=== PATIENT | female | born 1950 | race Caucasian/White ===

== ENCOUNTER 2017-01-05 17:24 | Inpatient (IN) | payer MEDICARE, OTHER ==
--- NOTE | ~2017-01-05 | CN ---
Consultation Report [facility] [address] [place]. [address] NAME: ALICE TORRES : 49 STATUS : ADM IN PAT#: [id number] AGE: 66 ADM/REG DATE : 01/05/17 MR#: [id number] REPORT SERV DATE: 01/06/17 DICTATED BY: DATE: REPORT STATUS : Draft TRANSCRIBED BY: MODL DATE: 01/06/17 DATE OF CONSULTATION: 01/06/2017 REASON FOR CONSULT: Anoxic brain injury, myoclonus. HISTORY OF PRESENT ILLNESS: This is a 66-year-old female who once at a pharmacy on 01/05/2017 was noted to pass out. Was also found to be in asystole. CPR was started with total CPR time of at least 30 minutes. The patient was taken initially to [facility] and subsequently to [facility] for further evaluation and treatment. The patient upon arrival to the ER was taken to the cardiac catheterization, was intubated, and sedated. Afterwards, the patient was noted to start hypothermia protocol. No previous reports of recent illness were otherwise noted. Patient after cardiac arrest was noted to develop myoclonus jerk. Keppra 1500 mg b.i.d. was started despite Keppra therapy. Patient was noted to have a persist myoclonic jerk, with the patient noted to have worsening jerking when propofol was decreased. PAST MEDICAL HISTORY: Significant for coronary artery disease, status post coronary artery bypass surgery. Patient was noted to have chronic left bundle branch block as well as a history of previous noted decreased EF of 37%. The patient also was noted to have hyperlipidemia as well as obesity and history of COPD. REVIEW OF SYSTEMS: Unable to be obtained secondary to patient's current mental status. FAMILY HISTORY: Unobtainable secondary to patient's mental status. SOCIAL HISTORY: Patient currently does not have any tobacco, alcohol, or recreational drug usage. ALLERGIES: THE PATIENT WAS NOTED TO HAVE NO KNOWN DRUG ALLERGIES. CURRENT HOSPITAL MEDICATIONS: Consist of aspirin, Brilinta, DuoNeb, Proventil, Keppra. The patient was started on Depakote but have now received a dosage of it, Protonix, as well as propofol, and fentanyl. The patient is also on Levophed. PHYSICAL EXAMINATION: VITAL SIGNS: Overnight, patient was noted to have vital signs with T-max of 91.7, heart rate of 50 to 84, respirations of 14 to 37, and blood pressure of 99 to 196 over 55 to 84. GENERAL: The patient is well developed, well nourished, in no acute distress. CARDIOVASCULAR EXAMINATION: Regular rate and rhythm. Carotid bruits were unable to be assessed secondary to patient's Central collar. PULMONARY EXAMINATION: Clear to auscultation bilaterally. NEUROLOGICAL EXAMINATION: Pupil was 2 mm bilaterally. Nonreactive at the time of evaluation. No blink to threat response. No corneal reflex was otherwise observed. No horizontal eye movement was seen on oculocephalic maneuver. The patient demonstrated no gag Consultation Report [place] [id number] [facility] [place]. [address] NAME: ALICE TORRES : 49 STATUS : ADM IN PAT#: [id number] AGE: 66 ADM/REG DATE : 01/05/17 MR#: [id number] REPORT SERV DATE: 01/06/17 DICTATED BY: DATE: REPORT STATUS : Draft TRANSCRIBED BY: MODL DATE: 01/06/17 reflex, and no grimace to noxious stimulation. Persistent multifocal myoclonus was noted during the evaluation, that was worse with stimulation. Patient otherwise demonstrated no grimace withdrawal or posturing to noxious stimulation in bilateral upper and lower extremities. The patient noted to have worsening myoclonus to noxious stimulation. The patient was noted to have 2+ reflex in bilateral upper extremity, 1+ in bilateral lower extremities at the time of evaluation. Gait and cerebellar examination was unable to be evaluated secondary to patient's current mental status. LABORATORY DATA: At the time of evaluation, patient was noted to have laboratory study. White blood cell count of 14.63, hemoglobin of 12.2, hematocrit of 36.0, platelet count of 307. Sodium of 142, potassium of 2.7, chloride of 102, bicarb 31, BUN of 20, creatinine of 0.71, glucose of 118, calcium of 9.2, magnesium of 2.4. At the time of evaluation, no neuro imaging was obtained. IMPRESSION: 1. Anoxic encephalopathy. 2. Mild clonus status post asystole CPR. Patient was noted to have myoclonus overnight. Hypothermia protocol is currently ongoing. Patient was started on Keppra 1500 mg IV b.i.d. We will start the patient on Depakote 1000 mg IV b.i.d. Myoclonus was noted to increasing frequency and severely when propofol dosage was decreased. Prognosis is guarded secondary to presence of early mild clonus. We will obtain EEG on 01/07/2017. May consider neuroimaging of patient once clinically stable. RECOMMENDATIONS: 1. Depakote 1000 mg IV b.i.d. 2. Continue Keppra. 3. We will obtain EEG on 01/07/2017. 4. Wean propofol as tolerated. 5. When patient is clinically stable, may consider neuro imaging. 6. Prognosis guarded. CCH/MODL Sy Bello MD / [id number]
--- NOTE | ~2017-01-05 | CN ---
Consultation Report [facility] [address] [place]. [address] NAME: ALICE MAY : 49 STATUS : ADM IN PAT#: [id number] AGE: 66 ADM/REG DATE : 01/05/17 MR#: [id number] REPORT SERV DATE: 01/05/17 DICTATED BY: YVONNE SEGOVIA DATE: 01/05/17 REPORT STATUS : Draft TRANSCRIBED BY: MODL DATE: 01/05/17 PULMONARY AND CRITICAL CARE MEDICINE CONSULTATION DATE OF CONSULTATION: 01/05/2017 PCP: Her primary care physician according to the previous records is Dr. Lilia Simeon. WILL CALL CLERK: Her project manager industrial is Dr. Anshu Mike. REASON FOR CONSULTATION: Acute hypoxemic respiratory failure, status post asystole arrest with prolonged down time. HISTORY OF PRESENT ILLNESS: Ms. May is a morbidly obese 66-year-old lady who has known coronary artery disease with a remote history of a stent to the LAD which was followed up with a left heart catheterization in 2013, performed by Dr. Brito which showed no flow limiting disease and a widely patent stent in the LAD. She has additional underlying medical history of COPD, severe obesity, osteoarthritis. Ms May at the [facility] in [place], [place] this afternoon, and according to her family (by reports of the paramedics who had transferred her), she was developing dyspnea with walking around the store and ultimately family went out to get the car to pick her up on the curb, and shortly before she was able to get into the car, she became unconscious and collapsed to the ground and face planted onto the asphalt. EMS was contacted emergently and the pharmacist from the [facility] ran out to the parking lot and assessed her and began CPR, this was less than four to five minutes from the time she collapsed. EMS arrived quickly, and when she was placed on the monitor, she was in asystole. ACLS was initiated and she was emergently transported to [facility] in [place] where she was found to be in persistent asystole. Ultimately, the team at [facility] was able to obtain return of spontaneous circulation, however, she was down for approximately 30 minutes from her initial collapse of the time that return of spontaneous circulation was achieved. Initial lab workup at [facility] showed potassium level of around 6 and marked metabolic and respiratory acidosis. She was stabilized and intubated with a size 7-0 tube (either by EMS or at [facility]) and was transferred by ground urgently to undergo a left heart catheterization at our facility with Dr. Brito. Her left heart cath showed a 90% mid LAD lesion which Dr. Brito was able to place a drug-eluting stent in. Brief LV gram showed global hypokinesis with an LV ejection fraction of around 20% and LV end-diastolic pressure around 30. Of note, she did receive Lasix after measurements were completed. She has not required vasopressors thus far and was started on hypothermia protocol at [facility] and which is being continued here. Her last ABG showed a pH of 7.43, a CO2 level of 44, and PO2 of greater than 300. She has not had any purposeful motor function or regaining of consciousness since her initial collapse, although the ER doctor at [facility] did note that she was moving her arms and legs non- purposefully after return of spontaneous circulation was achieved in the emergency department there. She has now been moved to the intensive care unit on mechanical ventilation following her left heart catheterization for ongoing hypothermia protocol and we are asked to assist with management. Consultation Report [address] [address] NAME: ALICE MAY : 49 STATUS : ADM IN LOCATED WITHIN [facility]#: [id number] AGE: 66 ADM/REG DATE : 01/05/17 MR#: [id number] REPORT SERV DATE: 01/05/17 DICTATED BY: YVONNE SEGOVIA DATE: 01/05/17 REPORT STATUS : Draft TRANSCRIBED BY: GIORGIO DATE: 01/05/17 PAST MEDICAL HISTORY: As the patient is not conscious and no family has arrived to the hospital yet, information is limited; coronary artery disease, status post remote stent to the LAD with followup left heart cath in 2013 as above; COPD, severe obesity with a weight of approximately 158 kg, osteoarthritis, suspected history of tobacco abuse, depression, dyslipidemia, a history of tobacco abuse, and hypothyroidism. SURGICAL HISTORY: Largely unknown. She does have laparoscopic incisions on her abdomen which we will need to further investigate. She did have the two left heart caths as noted above. Bladder tack in 2002 in addition to the heart cath. Additional past surgical history includes a repair of the Achilles tendon by Dr. Dallas Rizo in May of 2009 and an EGD performed by Dr. Shorty Calderon in 11/04/2008. She has also had two C-sections, dates unknown. SOCIAL HISTORY: Unknown. Her family is still en route to the hospital. FAMILY HISTORY: Unknown. HOME MEDICATIONS: Taken from the heart catheterization performed in 2013 include Advair, Norvasc, Coreg, Lasix, nitroglycerin, aspirin, isosorbide mononitrate, Prilosec, BuSpar, Synthroid, Effexor and ProAir. ALLERGIES: NONE KNOWN. REVIEW OF SYSTEMS: Unable to perform due to acuity and lack of family availability. ADVANCED DIRECTIVES AND LIVING LOMBARDO: Unknown. PHYSICAL EXAMINATION: GENERAL: The patient is a morbidly obese, female, with a very thick neck. She has a 7.0 ET tube projecting from the mouth and has intermittent myoclonic jerking which is fairly dramatic. HEENT: Head is atraumatic. Pupils are fixed and not reactive to light. Unable to perform extraocular movement testing. She has a mild conjunctival pallor and no appreciable scleral icterus. Ears, nose, and mouth are unremarkable aside from the medical support devices as noted above. She has moist oral mucosa. NECK: With a copious redundant soft tissue, limiting ability to assess for JVD. CHEST: With distant breath sounds bilaterally secondary to body habitus, S1-S2 with a brisk cap refill distal extremities. ABDOMEN: Morbidly obese with healing laparoscopic surgical scars on the abdomen. She has healed scars from previous C-sections on the lower abdomen and a fungal appearing rash in the creases of her pannus with some erythema of the skin there as well as on her sacrum which also appears to have the same rash. : A Hickman catheter is indwelling and draining minimal amount of translucent urine. Consultation Report [place] [id number] [facility] [place]. [address] NAME: ALICE MAY : 49 STATUS : ADM IN PAT#: [id number] AGE: 66 ADM/REG DATE : 01/05/17 MR#: [id number] REPORT SERV DATE: 01/05/17 DICTATED BY: YVONNE SEGOVIA DATE: 01/05/17 REPORT STATUS : Draft TRANSCRIBED BY: MODL DATE: 01/05/17 EXTREMITIES: With no spontaneous movements. She has pitting edema bilaterally. LYMPHATIC: Unremarkable. No palpable adenopathy. SKIN: She has multiple abrasions overlying the level of the knee, the elbow with a bandage with some active bleeding on the right elbow. NEUROLOGIC: Very limited. She is not conscious. She is having myoclonic jerking and no spontaneous responses to pain. PSYCHIATRIC: Unable to perform. PERSONAL REVIEW OF DIAGNOSTIC WORKUP PERFORMED AT THE PRE K [facility]ER: She has leukocytosis with neutrophilia, presumably reactive secondary to her events today. White blood cell count of 16.9, hemoglobin and hematocrit are mildly depressed at 12.5 and 39.6. She has macrocytosis and an adequate platelet count in the 300s. PTT of 103.5 in the setting of recent heparin use and her INR is 1.3. The chest pain profile is largely unremarkable. Her troponin level is negative of 0.03. A magnesium was 2.4. Other electrolytes were unremarkable. She has a creatinine of 1.08 and a BUN of 18, presumably in the setting of some degree of chronic kidney disease. She has mild hyperglycemia with a glucose of 157 after administration of several medications involving dextrose. Her pH is 7.43, PaCO2 of 44, PaO2 greater than 400, base excess of 5, bicarb is 29.6, and oxygen saturation 100% on 100% FiO2. A chest x-ray is pending. Her EKG from [facility] today shows normal sinus rhythm with a ventricular rate of 95 beats per minute. Prolonged QT at [address] changes which may or may not be chronic. She does have a left bundle branch block of unknown chronicity as well. IMPRESSION: 1. Acute hypoxemic respiratory failure, status post asystole arrest in the field with prolonged down time. 2. Asystole arrest with approximately 30 minutes of advanced cardiovascular life support prior to return of spontaneous circulation. 3. Known coronary artery disease, status post prior stenting to the left anterior descending remotely as well as follow up left heart cath in 2013 which showed no evidence of flow-limiting disease. Today's left heart cath showed 90% mid left anterior descending lesion which was treated with a drug-eluting stent by Dr. Brito. 4. Ischemic cardiomyopathy with a left ventricular ejection fraction approximately 20% and a left ventricular end-diastolic pressure of around 30, status post diuretics in the bed laborer. 5. Metabolic acidosis as well as respiratory acidosis secondary to the above. 6. Obstructive lung disease, presumably chronic obstructive pulmonary disease versus asthma on outpatient therapy. 7. Morbid obesity with a body mass index of greater than 40. 8. Additional past medical history as above. 9. Myoclonic jerking in the setting of prolonged down time during cardiac arrest suspicious for anoxia. 10.Remote tobacco abuse. Consultation Report [place] [id number] [place]. [address] NAME: ALICE MAY : 49 STATUS : ADM IN PAT#: [id number] AGE: 66 ADM/REG DATE : 01/05/17 MR#: [id number] REPORT SERV DATE: 01/05/17 DICTATED BY: YVONNE SEGOVIA DATE: 01/05/17 REPORT STATUS : Draft TRANSCRIBED BY: GIORGIO DATE: 01/05/17 PLAN: Ms. May has already been admitted to the CCU. She is intubated with a 7.0 ET tube from the outside hospital and has been started on hypothermia protocol. The [facility] is already at target temperature as she was quite hypothermic upon her arrival. We will continue to support her through the hypothermia window, and we will likely need to involve Neurology upon rewarming for prognostication of her presumed anoxia, particularly in light of her myoclonic jerking which was noted prior to administration of sedatives or paralytics while she was being transferred to the CCU from the bed laborer. We will hyperventilate to correct acidosis and monitor her renal function closely. Continue diuretics on an as-needed basis to maintain euvolemia and obtain central venous access should she decompensate and require vasopressors. Her family has not yet arrived, however, upon there arrival, we need to obtain additional past medical history and also obtain past records from Dr. Mike and Dr. Lilia Simeon. She was on a heparin drip earlier today. Pending Cardiology plan, we will add pharmacologic DVT prophylaxis and start her on a proton pump inhibitor for stress ulcer prophylaxis. We will hold the remainder of her home medications. She will need a tetanus shot as we do not know when her last one was, and she does have some injuries to her skin due to her fall. Should she improve neurologically, we may also need to consider C- spine imaging in the future, however, she is far too unstable to transfer the scan at the moment and we will try to find a C-collar which would fit on her fairly large neck. She is a full code pending further prognostication. I did discuss case with Dr. Brito and reviewed her records and [facility] as well as [facility]. Approximately, 70 minutes of critical care time was spent at the bedside uninterrupted, assessing, stabilizing, and coordinating care. Please see separate central line insertion note. KAREY/GIORGIO Yvonne Segovia MD / [id number] CC: Jovita Brito M.D.
--- NOTE | ~2017-01-05 | HP ---
History And Physical [facility] [address] [place]. [address] NAME: ALICE TORRES : 49 STATUS : ADM IN PAT#: [id number] AGE: 66 ADM/REG DATE : 01/05/17 MR#: [id number] REPORT SERV DATE: 01/05/17 DICTATED BY: ISAAC BRITO DATE: 01/05/17 REPORT STATUS : Draft TRANSCRIBED BY: MODL DATE: 01/05/17 DATE OF ADMISSION: 01/05/2017 CHIEF COMPLAINT: Status post syncope and asystolic arrest. HISTORY OF PRESENT ILLNESS: The patient is a 66-year-old female with known coronary artery disease with remote stenting to the left anterior descending coronary artery. Patient history is taken from family members at the scene as well as medical records. The patient is intubated, mechanically ventilated and chemically sedated, and unable to contribute to interview. Per patient report, the patient was having respiratory difficulties and fatigue while in the [facility]. They cut her visit short as the family member was bringing the car to the door. The patient's [id number] helped her step-down for the curb, as the car pulled up and the [id number] stepped over to open the door, the patient collapsed forward and on to her face and chest. She was completely unresponsive. Bystander CPR by a family member and the pharmacist of the [facility] was initiated within a matter of several minutes. Emergency medical services arrived reportedly within 5 to 10 minutes. Telemetry monitoring demonstrated asystole. Advanced cardiac life support measures were initiated including intubation and ventilation. The patient had return of spontaneous rhythm with a perfusing blood pressure. The patient was transferred to [facility] in [place], [place] for further evaluation. She reportedly had some spontaneous movement of the upper and lower extremities. No specific purposeful motor movement was described. An electrocardiogram was performed, which demonstrated sinus rhythm with a left bundle-branch block. It was of unknown chronicity and due to arrest in the presence of left bundle-branch block. The Code STEMI protocol was activated, and the patient was transferred emergently to [facility]. The patient was received emergently in the cardiac catheterization laboratory. On arrival in the catheterization laboratory, the patient was chemically sedated, mechanically intubated and mechanically ventilated prior to arrival. The patient had a spontaneous rhythm with sinus rhythm in the 90s with a perfusing pressure in the 130 systolic. PAST MEDICAL HISTORY: 1. Coronary artery disease status post remote coronary artery bypass grafting with most recent cardiac catheterization 09/01/2013, demonstrating a patent stent to the LAD and no flow-limiting CAD at that time. 2. Chronic left bundle-branch block by review of old medical records. 3. Reported remote history of depressed ejection fraction of 37% by nuclear perfusion stress test in 2013. 4. Morbid obesity. 5. Hyperlipidemia. 6. History of asthma/chronic obstructive pulmonary disease. REVIEW OF SYSTEMS: History And Physical [address] [address] NAME: ALICE TORRES : 49 STATUS : ADM IN [facility]#: [id number] AGE: 66 ADM/REG DATE : 01/05/17 MR#: [id number] REPORT SERV DATE: 01/05/17 DICTATED BY: ISAAC BRITO DATE: 01/05/17 REPORT STATUS : Draft TRANSCRIBED BY: GIORGIO DATE: 01/05/17 Unobtainable. FAMILY HISTORY: Not obtainable. SOCIAL HISTORY: Reported nondrinker, nonsmoker with no illicit drug use per family. PHYSICAL EXAMINATION: VITALS: Blood pressure 118/64, pulse 94, respirations 20 and mechanically ventilated. Weight 158 kg. GENERAL: Morbidly obese female chemically sedated, intubated with mechanical ventilation. HEENT: Normal. NECK: Supple, no JVD or bruit, normal carotid upstroke bilaterally, no thyromegaly. LUNGS: Diffuse rhonchi. CARDIOLOGY: Regular rhythm, normal S1, S2, no thrill, no murmur, rubs or gallops, normal PMI. ABDOMEN: Bowel sounds positive, soft, nontender, and morbidly obese. Previous lower mid line to pelvic diagonal scar noted. EXTREMITIES: No edema. Normal pulses. No clubbing or cyanosis. SKIN: Warm and dry, no significant rash. NEUROLOGIC: Alert and oriented x 3. Appropriate mood. EKG: Sinus rhythm. Left bundle-branch block. IMPRESSION: Status post cardiac arrest with left bundle-branch block which initially was felt to be of an acute finding. The patient received emergently in cardiac catheterization laboratory. Please see details of catheterization report under separate report. In summary, the patient found have a 90% mid vessel LAD stenosis with stenting using a drug-eluting stent. Hand injection left ventriculogram demonstrating severely depressed left ventricular systolic function with an ejection fraction of approximately 20%. The patient is transferred to the cardiac intensive care unit in stable, but critical condition with plans for hypothermia protocol. TRAVIS/GIORGIO Jovita Brito M.D. / [id number] CC: Jovita Brito M.D.
--- NOTE | ~2017-01-05 | EEG ---
Electroencephalogram [address] [place]. [address] NAME: ALICE TORRES : 48 STATUS : ADM IN [facility]#: [id number] AGE: 66 ADM/REG DATE : 01/05/17 MR#: [id number] REPORT SERV DATE: 01/08/17 DICTATED BY: LATRICE ERIC DATE: 01/08/17 REPORT STATUS : Draft TRANSCRIBED BY: MODL DATE: 01/08/17 ORDERING PHYSICIAN: Sy Bello MD INTERPRETING PHYSICIAN: Latrice Eric MD, Neurology EEG NUMBER: [id number] REASON FOR EEG: Myoclonic jerking status post cardiopulmonary arrest, status post hypothermia protocol. LOCATION OF THE PATIENT: CCU, bed 13. ELECTROENCEPHALOGRAPHY REPORT: 23 surface electrodes, 10-20 international placement was used. Photic stimulation was performed. Video monitoring was utilized. The patient was unresponsive on ventilatory support. Continuous rhythmic eye movement with rhythmic twitching of the upper eyelids was observed during the EEG. Multiple medications were administered during the EEG to treat continuous status epilepticus. The salient feature of this EEG was presence of generalized high to middle voltage spikes and poly spike activity which was seen in all the leads with the amplitude being the greatest in the anterior head regions. The configuration of the waveforms appeared to resemble biphasic and triphasic waveforms. Additional spikes and poly spikes were observed. The frequency of above described paroxysmal epileptiform discharges was between 2 and 4 cycles per second. No discernible background activity was seen of the interictal EEG. This activity continued despite the administration of medications which included 1500 mg of Depakote, 1.5 g of Cerebyx, repeated doses of Ativan, 1500 mg of Keppra, and eventually towards the end of the recording Versed was administered. This was a prolonged EEG of 4 hours and 50 minutes duration. No significant changes in the paroxysmal activity was seen despite the administration of medication. IMPRESSION: MARKEDLY ABNORMAL EEG CHARACTERIZED BY PRESENCE OF CONTINUOUS STATUS EPILEPTICUS. THE RHYTHMIC JERKING OF THE EYES AND EYELIDS CORRESPONDED TO THE RHYTHMIC EPILEPTIFORM DISCHARGES. DURING THE TIME THE PATIENT WAS UNRESPONSIVE, NO OTHER MUSCLE GROUPS SHOWED EVIDENCE OF TONIC OR CLONIC ACTIVITY. THIS EEG IS SUGGESTIVE OF PRESENCE OF ANOXIC ENCEPHALOPATHY WITH PROLONGED STATUS EPILEPTICUS. CLINICAL CORRELATION IS RECOMMENDED. A REPEAT EEG IS RECOMMENDED IF CLINICALLY INDICATED. KAREN/GIORGIO Latrice Eric MD / [id number] CC: Electroencephalogram [address] [facility] [place] [address] NAME: ALICE TORRES : 48 STATUS : ADM IN [facility]#: [id number] AGE: 66 ADM/REG DATE : 01/05/17 MR#: [id number] REPORT SERV DATE: 01/08/17 DICTATED BY: LATRICE ERIC DATE: 01/08/17 REPORT STATUS : Draft TRANSCRIBED BY: MODL DATE: 01/08/17 Jovita Brito M.D.
--- NOTE | ~2017-01-05 | HP ---
History And Physical [facility] [address] [place]. [address] NAME: ALICE TORRES : 48 STATUS : ADM IN [facility]#: [id number] AGE: 66 ADM/REG DATE : 01/05/17 MR#: [id number] REPORT SERV DATE: 01/09/17 DICTATED BY: MARSHAL JAUREGUI DATE: 01/08/17 REPORT STATUS : Draft TRANSCRIBED BY: MODTrevor DATE: 01/08/17 DATE OF ADMISSION: 01/05/2017 The patient is a 66-year-old, morbidly obese woman, who had an tvl-go-qfvlyokv arrest reportedly at a pharmacy on Father's Day. She was coded, sent initially to [facility] and then to [facility]. She had apparently a profound anoxic brain injury and seizures and is on a vent. They tried hypothermia, but she continues to have some seizures and is otherwise obtunded. Most of this history was obtained either from the chart or interviewing her of 45 years, Shahla and her two children, Karmen and Warren. PAST MEDICAL HISTORY: Pertinent for coronary artery disease with a stent, congestive heart failure. She had had an EF of 37% and after this most recent MO, it is down to 20%. She has morbid obesity with a reported weight of 373 pounds and a BMI of 64.1. She also has hyperlipidemia, asthma, COPD. She was started on oxygen in October. Sleep apnea, chronic left bundle-branch block, history of a stroke. PAST SURGICAL HISTORY: Includes several cardiac caths, one stent in her heart, bladder tack, two C-sections, Achilles tendon repair, and hysterectomy in October. SOCIAL HISTORY: She has been 45 years, two children. She quit smoking five years ago. No alcohol. No illicits. She was on disability prior to that. 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 FAMILY HISTORY: Pertinent for heart disease, heart failure, stroke and cancer. ALLERGIES: SHE HAS NO ALLERGIES. CT SCAN TODAY SHOWS THE OLD LEFT CVA, NO OTHER CHANGES. EEG WAS CONSISTENT WITH SEIZURES. PHYSICAL EXAMINATION: GENERAL: This is a morbidly obese, obtunded white female, who was not seizing at this exact moment, but was earlier this afternoon. VITAL SIGNS: Blood pressure 131/55, 81, 25, 98.2. EYES: Pupils are small and equal. NECK: She has a brace on her neck. HEART: Sounds are very distant but regular. LUNGS: Rhonchi without rales or wheezes. ABDOMEN: Very large, there are several bits of equipment on her abdomen. I feel no masses. EXTREMITIES: She has 2+ edema. NEURO: She is unable to cooperate with a neurologic exam. PLAN: Family is waiting to hear from the neurologist with an eye toward extubating the patient, controlling the seizures and allowing the patient comfort care until she passes. She is being GIP for her seizures and dyspnea. History And Physical [address] [address] NAME: ALICE TORRES : 48 STATUS : ADM IN [facility]#: [id number] AGE: 66 ADM/REG DATE : 01/05/17 MR#: [id number] REPORT SERV DATE: 01/09/17 DICTATED BY: MARSHAL JAUREGUI DATE: 01/08/17 REPORT STATUS : Draft TRANSCRIBED BY: GIORGIO DATE: 01/08/17 GP/GIORGIO Marshal Jauregui MD / [id number] CC: Jovita Brito M.D.
--- NOTE | ~2017-01-05 | EEG ---
Electroencephalogram [address] [place]. [address] NAME: ALICE TORRES : 48 STATUS : DIS IN PAT#: [id number] AGE: 66 ADM/REG DATE : 01/05/17 MR#: [id number] REPORT SERV DATE: 01/15/17 DICTATED BY: LATRICE ERIC DATE: 01/14/17 REPORT STATUS : Draft TRANSCRIBED BY: MODL DATE: 01/14/17 REQUESTING PHYSICIAN: The packer denture team and referring, Jovita Brito M.D. INTERPRETING PHYSICIAN: Latrice Eric MD, Neurology. REASON FOR EEG: Status post cardiopulmonary arrest. Continuous seizure activity. ELECTROENCEPHALOGRAPHY REPORT: . Video monitoring was utilized. Photic stimulation was not performed. This EEG showed continuous status epilepticus with spikes and poly-spike activity occurring in periodic and rhythmic configuration. Richard and polyspike activity of frequency between 1 and 5-6 cycles per second was seen. The epileptiform discharges were of high-voltage, did not respond to stimulation and persisted despite the use of anticonvulsant medications. 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 Burst suppression was seen inter-ictally with no activity seen between ictal discharges. IMPRESSION: MARKEDLY ABNORMAL EEG CHARACTERIZED BY CONTINUOUS PAROXYSMAL EPILEPTIFORM DISCHARGES. THIS ACTIVITY APPEARED TO BE OF HIGH VOLTAGE, OCCASIONALLY MORE PROMINENT ANTERIOR HEAD REGIONS. SPIKE AND POLYSPIKE ACTIVITY WERE ALSO SEEN CONTINUOUSLY. WORSENING SINCE THE EEG #1 DONE ON 01/07/2017 WAS OBSERVED. THIS EEG IS COMPATIBLE WITH ANOXIC ENCEPHALOPATHY STATUS EPILEPTICUS. PROGNOSIS IS GRAVE. RESULTS OF THE EEG WERE DISCUSSED WITH THE CHILD DEVELOPMENT ASSISTANT TEAM AND WITH THE PATIENT'S FAMILY. KAREN/GIORGIO Latrice Eric MD / [id number] CC: Sukhwinder AlmazanUNC Health Pardee
--- NOTE | ~2017-01-05 | DS ---
Discharge Summary [facility] [address] [place]. [address] NAME: ALICE TORRES : 48 STATUS : DIS IN PAT#: [id number] AGE: 66 ADM/REG DATE : 01/05/17 MR#: [id number] REPORT SERV DATE: 01/25/17 DICTATED BY: MARSHAL JAUREGUI DATE: 01/24/17 REPORT STATUS : Draft TRANSCRIBED BY: MODL DATE: 01/24/17 ADMISSION DATE: 01/05/2017 DISCHARGE DATE: 01/09/2017 The patient is a 66-year-old, morbidly obese female, who had an axv-ag-oszbhzum arrest at [facility] on Father's Day. She was coded, sent to [facility] and then to [facility] with a severe anoxic brain injury and seizures, and was on a vent. Most of the history which you can refer to further was from the family. The patient's past medical history includes coronary artery disease, congestive heart failure after her most recent [place] with the arrest her ejection fraction was down to 20%. She was morbidly obese with a reported weight of 373 and a BMI of 64. She also had COPD, sleep apnea, chronic left bundle branch block, and history of stroke. The patient was initially admitted on 01/05/2017 and [facility] was consulted on 01/09/2017. We focused on keeping the patient's diabetes under some control. She was on Cerebyx for her seizures. We put her on morphine 3 mg IV q.4 scheduled and q.1 p.r.n. along with Ativan. Continued her Keppra and valproic acid. The patient's apparent discomfort appeared to improve and the patient was DNR and she at 6:22 shortly after she was admitted to Hospice. CAUSE OF : Anoxic brain injury from cardiac arrest. DICTATED BY: Marshal Jauregui MD GP/GIORGIO Marshal Jauregui MD / [id number] CC: Sukhwinder Almazan M.D.
--- NOTE | ~2017-01-05 | OP ---
Record Of Operation [facility] [address] [place]. [address] NAME: ALICE TORRES : 48 STATUS : ADM IN PAT#: [id number] AGE: 66 ADM/REG DATE : 01/05/17 MR#: [id number] REPORT SERV DATE: 01/06/17 DICTATED BY: YADIRA PROCTOR DATE: 01/06/17 REPORT STATUS : Draft TRANSCRIBED BY: MODL DATE: 01/06/17 DATE OF PROCEDURE: 01/06/2017 INDICATION FOR PROCEDURE: Difficulty with blood pressure measurement through a noninvasive approach in this patient who has arrest from a cardiogenic source and critically ill. PREOPERATIVE DIAGNOSIS: Cardiogenic shock. POSTOPERATIVE DIAGNOSIS: Cardiogenic shock. PROCEDURE NOTE: The patient was evaluated for a radial A-line. The patient's left arm was draped and sterilized in a standard fashion, using a standard Seldinger technique, attempted to get an A-line, but was unable to thread the arterial line after 3 attempts of puncturing the radial A-line on the left side. We then switched to the right. We were able to obtain sample and insertion of the A-line upon first stick. The patient had a good waveform and this was sutured in standard fashion. The patient has good waveform and a blood pressure of 182 on the monitor. Dressed in standard fashion. OUTCOME: Successful right-sided A-line as we were not able to obtain the left arterial line on the radial site. HFQ/MODL Yadira Proctor MD / [id number] CC: Sukhwinder Almazan M.D.
[~2017-01-05 17:24] MED LIST: ADVAIR250 INH; ASAB PO; BUSPAR15 M1 PO; COREG CR80 MG PO; COREG25 PO; DIOVAN HCT320 MG/25 PO; EFFEXOR100 MG PO; KLONO1 PO; KLOR-CON M2020 MEQ PO; L80 PO; MEP50TAB PO; MONOKET PO; NITROQUICK0.4 MG SL; NITROSTAT0.4 MG SL; NORV5 PO; PEP20 PO; PRILO PO; PRILOSEC40 MG PO; PROAIR HFA INH; SYN.05 PO; VYTORIN 10/80 T1 TAB PO
[2017-01-05 18:57] LABS: CREATININE 0.9 MG/DL (0.55-1.02)
[2017-01-05 19:14] LABS: BASOPHILS 0.1 %; BASOPHILS ABSOLUTE 0.01 10/3/uL (0.0-0.16); EOSINOPHILS 0.2 %; EOSINOPHILS ABSOLUTE 0.03 10/3/uL (0.0-0.53); HEMOGLOBIN 12.5 g/dL (12.0-16.0); IMMATURE GRANULOCYTES 0.7 %; IMMATURE GRANULOCYTES ABSOLUTE 0.12 10/3/uL (0.0-0.11); LYMPHOCYTES ABSOLUTE 0.67 10/3/uL (0.67-4.30); MEAN CORPUS HGB CONC 31.6 g/dL (32.0-36.0); MEAN CORPUSCULAR HEMOGLOB 32.3 pg (26.0-34.0); MEAN CORPUSCULAR VOLUME 102.3 fL (80-100); MEAN PLATELET VOLUME 10.2 fL (9.2-13.0); MONOCYTES 5.4 %; MONOCYTES ABSOLUTE 0.92 10/3/uL (0.21-1.20); NEUTROPHILS 89.6 %; NEUTROPHILS ABSOLUTE 15.18 10/3/uL (2.02-8.40); PLATELET COUNT 345 10/3/uL (150-400); RBC DISTRIBUTION WIDTH 13.2 % (12.0-16.0); RED CELL COUNT 3.87 10/6/uL (4.0-5.6)
[2017-01-05 19:15] LABS: HEMATOCRIT 39.6 % (36.0-48.0); MANUAL DIFF NO %; WHITE BLOOD CELLS 16.9 10/3/uL (4.5-10.5)
[2017-01-05 19:21] LABS: INTERNATIONAL NORMAL RATI 1.3 UNITS (-)
[2017-01-05 19:23] LABS: PARTIAL THROMBO TIME 103.5 SEC (22.5-37.2)
[2017-01-05 19:28] LABS: CHEST PAIN PROFILE TAT 0 Hrs 19 Mins; CHLORIDE, SERUM 103 MMOL/L (96-112); CO2 (CARBON DIOXIDE) 28 MMOL/L (24-34); CREATININE 1.08 MG/DL (0.55-1.02); GFR AFRICAN AMERICAN 62 ML/MIN (>=60); GFR NON AFRICAN AMERICAN 53 ML/MIN (>=60); POTASSIUM, SERUM 4.3 MMOL/L (3.5-5.3); SODIUM, SERUM 139 MMOL/L (135-148); TROPONIN I 0.03 NG/ML (<0.05)
[2017-01-05 19:30] LABS: BUN (BLOOD UREA NITROGEN) 18 MG/DL (6-23); CALCIUM, SERUM 8.7 MG/DL (8.5-10.4); GLUCOSE, SERUM 157 MG/DL (60-99)
[2017-01-05 19:35] LABS: PROTIME (NOT ORD) 16.4 SEC (12.0-14.5)
[2017-01-05 23:12] LABS: INSTRUMENT SERIAL # 35151; PCO2 (CO2 TENSION) 53 MMHG (35-45); PO2 (O2 TENSION) 130 MMHG (79-93)
[2017-01-05 23:13] LABS: ALLENS TEST Pos; BE (BASE EXCESS) 5.7 MEQ/L (0 +/- 2.5); CARBOXYHEMOGLOBIN 0.1 % (0-3); HEMOBLOGIN CONTENT 14.4 G/DL (12-16); METHEMOGLOBIN 0.5 % (0-3); MODE CMV; OPERATOR ID 15231; SAMPLE Arterial; TIDAL VOLUME 480 ML
[2017-01-06 02:09] LABS: BASOPHILS 0.1 %; BASOPHILS ABSOLUTE 0.01 10/3/uL (0.0-0.16); EOSINOPHILS 0 %; HEMOGLOBIN 12.2 g/dL (12.0-16.0); IMMATURE GRANULOCYTES 0.3 %; IMMATURE GRANULOCYTES ABSOLUTE 0.04 10/3/uL (0.0-0.11); LYMPHOCYTES 5.2 %; LYMPHOCYTES ABSOLUTE 0.76 10/3/uL (0.67-4.30); MANUAL DIFF NO %; MEAN CORPUS HGB CONC 33.9 g/dL (32.0-36.0); MEAN CORPUSCULAR HEMOGLOB 34.1 pg (26.0-34.0); MEAN CORPUSCULAR VOLUME 100.6 fL (80-100); MEAN PLATELET VOLUME 10.9 fL (9.2-13.0); MONOCYTES 7.1 %; MONOCYTES ABSOLUTE 1.04 10/3/uL (0.21-1.20); NEUTROPHILS 87.3 %; NEUTROPHILS ABSOLUTE 12.73 10/3/uL (2.02-8.40); NUCLEATED RED BLOOD CELLS 1.9 /100WBC (0-0); PLATELET COUNT 307 10/3/uL (150-400); RBC DISTRIBUTION WIDTH 13.2 % (12.0-16.0); RED CELL COUNT 3.58 10/6/uL (4.0-5.6); WHITE BLOOD CELLS 14.6 10/3/uL (4.5-10.5)
[2017-01-06 02:15] LABS: INTERNATIONAL NORMAL RATI 1.4 UNITS (-); PARTIAL THROMBO TIME 40.8 SEC (22.5-37.2); PROTIME (NOT ORD) 16.6 SEC (12.0-14.5)
[2017-01-06 02:30] LABS: CHLORIDE, SERUM 101 MMOL/L (96-112); CO2 (CARBON DIOXIDE) 29 MMOL/L (24-34); CREATININE 0.79 MG/DL (0.55-1.02); GFR AFRICAN AMERICAN 90 ML/MIN (>=60); GFR NON AFRICAN AMERICAN 77 ML/MIN (>=60); SODIUM, SERUM 138 MMOL/L (135-148); TOTAL BILIRUBIN 0.8 MG/DL (0-1.2)
[2017-01-06 03:01] LABS: BUN (BLOOD UREA NITROGEN) 16 MG/DL (6-23); TOTAL PROTEIN 6.1 G/DL (6.0-8.5)
[2017-01-06 03:04] LABS: CALCIUM, SERUM 7.1 MG/DL (8.5-10.4); GLUCOSE, SERUM 154 MG/DL (60-99); POTASSIUM, SERUM 3.3 MMOL/L (3.5-5.3)
[2017-01-06 03:05] LABS: A/G RATIO 0.7 (0.7-1.9); ALBUMIN 2.5 G/DL (3.5-5.0); ALKALINE PHOSPHATASE 124 U/L (45-117); CK-MB 2.6 NG/ML; CPK 164 U/L (0-200); GLOBULIN 3.6 G/DL (2.5-4.1); SGOT(AST) 66 U/L (5-40); SGPT(ALT) 46 U/L (5-65); TROPONIN I 0.05 NG/ML (<0.05)
[2017-01-06 03:59] LABS: ALLENS TEST Pos; BE (BASE EXCESS) 6.2 MEQ/L (0 +/- 2.5); CARBOXYHEMOGLOBIN 0.2 % (0-3); HCO3 (ACTUAL BICARBONATE) 32.3 MEQ/L (23-27); HEMOBLOGIN CONTENT 14.3 G/DL (12-16); INSTRUMENT SERIAL # 35151; METHEMOGLOBIN 0.5 % (0-3); MODE PCV; O2 CONTENT 19.4 VOL% (18-24); OPERATOR ID 17370; PCO2 (CO2 TENSION) 52 MMHG (35-45); PO2 (O2 TENSION) 89 MMHG (79-93); SAMPLE Arterial; pH 7.41 (7.37-7.43)
[2017-01-06 04:15] LABS: ALLENS TEST Pos; BE (BASE EXCESS) 6.5 MEQ/L (0 +/- 2.5); CARBOXYHEMOGLOBIN 0.2 % (0-3); HCO3 (ACTUAL BICARBONATE) 29.2 MEQ/L (23-27); HEMOBLOGIN CONTENT 14.3 G/DL (12-16); INSTRUMENT SERIAL # 35151; METHEMOGLOBIN 0.4 % (0-3); MODE PCV; O2 CONTENT 19.6 VOL% (18-24); OPERATOR ID 15231; PCO2 (CO2 TENSION) 36 MMHG (35-45); PO2 (O2 TENSION) 91 MMHG (79-93); SAMPLE Arterial; pH 7.53 (7.37-7.43)
[2017-01-06 06:54] LABS: BUN (BLOOD UREA NITROGEN) 19 MG/DL (6-23); CHLORIDE, SERUM 102 MMOL/L (96-112); CHOL/HDL RATIO(NOT ORDER) 5.3 (0-5); CHOLESTEROL 184 MG/DL (< 200); CO2 (CARBON DIOXIDE) 29 MMOL/L (24-34); CPK 164 U/L (0-200); CREATININE 0.86 MG/DL (0.55-1.02); GFR AFRICAN AMERICAN 81 ML/MIN (>=60); GFR NON AFRICAN AMERICAN 70 ML/MIN (>=60); GLUCOSE, SERUM 141 MG/DL (60-99); HDL CHOLESTEROL 35 MG/DL (> 49); LDL CHOLESTEROL 104 MG/DL (< 130); NON-HDL CHOLESTEROL 149 MG/DL (< 160); PHOSPHORUS, SERUM 1.4 MG/DL (2.5-4.5); POTASSIUM, SERUM 3.1 MMOL/L (3.5-5.3); SODIUM, SERUM 140 MMOL/L (135-148); TRIGLYCERIDE 229 MG/DL (< 150)
[2017-01-06 06:55] LABS: CALCIUM, SERUM 9.4 MG/DL (8.5-10.4); CK-MB 3.3 NG/ML
[2017-01-06 11:08] LABS: A/G RATIO 0.7 (0.7-1.9); ALBUMIN 2.7 G/DL (3.5-5.0); ALKALINE PHOSPHATASE 132 U/L (45-117); BUN (BLOOD UREA NITROGEN) 20 MG/DL (6-23); CHLORIDE, SERUM 102 MMOL/L (96-112); CO2 (CARBON DIOXIDE) 31 MMOL/L (24-34); CREATININE 0.71 MG/DL (0.55-1.02); GFR AFRICAN AMERICAN 102 ML/MIN (>=60); GFR NON AFRICAN AMERICAN 88 ML/MIN (>=60); GLOBULIN 3.7 G/DL (2.5-4.1); GLUCOSE, SERUM 118 MG/DL (60-99); SGOT(AST) 45 U/L (5-40); SGPT(ALT) 35 U/L (5-65); SODIUM, SERUM 142 MMOL/L (135-148); TOTAL BILIRUBIN 0.5 MG/DL (0-1.2); TOTAL PROTEIN 6.4 G/DL (6.0-8.5)
[2017-01-06 11:10] LABS: CK-MB 3.8 NG/ML; CPK 191 U/L (0-200); PHOSPHORUS, SERUM 2.2 MG/DL (2.5-4.5); POTASSIUM, SERUM 2.7 MMOL/L (3.5-5.3); TROPONIN I 0.09 NG/ML (<0.05)
[2017-01-06 12:53] LABS: ASCORBIC ACID (UR NOT ORDER) 40 (NEG); BILIRUBIN, URINE NEGATIVE (NEG); KETONE, URINE 80 MG/DL (NEG); LEUKOCYTE ESTERASE(NOT OR NEG (NEG); WBC (NOT ORDERED) (RFLEX) 3 (0-5)
[2017-01-06 15:17] LABS: CK-MB 6.4 NG/ML
[2017-01-06 15:20] LABS: CKMB INDEX (NOT ORD) 2.4; PHOSPHORUS, SERUM 4.4 MG/DL (2.5-4.5); POTASSIUM, SERUM 4.1 MMOL/L (3.5-5.3)
[2017-01-06] MEDS ORDERED: NORVASC (16:14)
[2017-01-06] MEDS ORDERED: COREG (16:14)
[2017-01-06] MEDS ORDERED: EFFEXOR (16:15)
[2017-01-06] MEDS ORDERED: LASIX (16:15)
[2017-01-06] MEDS ORDERED: BUSPAR (16:15)
[2017-01-06] MEDS ORDERED: ZANTAC (16:15)
[2017-01-06] MEDS ORDERED: ADVIL PM1 CAP PO (16:16)
[2017-01-06] MEDS ORDERED: TYLENOL (16:18)
[2017-01-06] MEDS ORDERED: *UNABLE3 (16:18)
[2017-01-06 18:48] LABS: CKMB INDEX (NOT ORD) 2.3; TROPONIN I 0.15 NG/ML (<0.05)
[2017-01-06 22:11] LABS: BASOPHILS 0.1 %; BASOPHILS ABSOLUTE 0.02 10/3/uL (0.0-0.16); EOSINOPHILS 0.3 %; EOSINOPHILS ABSOLUTE 0.04 10/3/uL (0.0-0.53); HEMATOCRIT 38.6 % (36.0-48.0); HEMOGLOBIN 12.4 g/dL (12.0-16.0); IMMATURE GRANULOCYTES 0.4 %; IMMATURE GRANULOCYTES ABSOLUTE 0.06 10/3/uL (0.0-0.11); LYMPHOCYTES 15.4 %; LYMPHOCYTES ABSOLUTE 2.42 10/3/uL (0.67-4.30); MANUAL DIFF NO %; MEAN CORPUS HGB CONC 32.1 g/dL (32.0-36.0); MEAN CORPUSCULAR HEMOGLOB 31.8 pg (26.0-34.0); MEAN PLATELET VOLUME 10.2 fL (9.2-13.0); MONOCYTES 9.8 %; MONOCYTES ABSOLUTE 1.54 10/3/uL (0.21-1.20); PLATELET COUNT 339 10/3/uL (150-400); RBC DISTRIBUTION WIDTH 13.4 % (12.0-16.0); WHITE BLOOD CELLS 15.7 10/3/uL (4.5-10.5)
[2017-01-06 22:17] LABS: INTERNATIONAL NORMAL RATI 1.2 UNITS (-); PARTIAL THROMBO TIME 27.4 SEC (22.5-37.2); PROTIME (NOT ORD) 15.2 SEC (12.0-14.5)
[2017-01-06 22:28] LABS: LACTATE 1.9 MMOL/L (0.3-2.4)
[2017-01-06 22:30] LABS: A/G RATIO 0.8 (0.7-1.9); ALBUMIN 2.8 G/DL (3.5-5.0); ALKALINE PHOSPHATASE 124 U/L (45-117); BUN (BLOOD UREA NITROGEN) 19 MG/DL (6-23); CALCIUM, SERUM 9.1 MG/DL (8.5-10.4); CHLORIDE, SERUM 105 MMOL/L (96-112); CO2 (CARBON DIOXIDE) 29 MMOL/L (24-34); CREATININE 0.82 MG/DL (0.55-1.02); GFR AFRICAN AMERICAN 86 ML/MIN (>=60); GFR NON AFRICAN AMERICAN 74 ML/MIN (>=60); GLOBULIN 3.5 G/DL (2.5-4.1); GLUCOSE, SERUM 130 MG/DL (60-99); SGOT(AST) 65 U/L (5-40); SGPT(ALT) 36 U/L (5-65); SODIUM, SERUM 143 MMOL/L (135-148); TOTAL BILIRUBIN 0.4 MG/DL (0-1.2); TOTAL PROTEIN 6.3 G/DL (6.0-8.5)
[2017-01-06 22:31] LABS: CKMB INDEX (NOT ORD) 2.4; CPK 906 U/L (0-200); POTASSIUM, SERUM 3.2 MMOL/L (3.5-5.3)
[2017-01-07 03:37] LABS: CK-MB 20.8 NG/ML; CKMB INDEX (NOT ORD) 2.6
[2017-01-07 03:38] LABS: TROPONIN I 0.26 NG/ML (<0.05)
[2017-01-07 04:16] LABS: BASOPHILS 0.1 %; BASOPHILS ABSOLUTE 0.02 10/3/uL (0.0-0.16); EOSINOPHILS 0.5 %; EOSINOPHILS ABSOLUTE 0.07 10/3/uL (0.0-0.53); HEMATOCRIT 38.8 % (36.0-48.0); HEMOGLOBIN 12.6 g/dL (12.0-16.0); IMMATURE GRANULOCYTES 0.4 %; IMMATURE GRANULOCYTES ABSOLUTE 0.06 10/3/uL (0.0-0.11); LYMPHOCYTES 18.3 %; LYMPHOCYTES ABSOLUTE 2.76 10/3/uL (0.67-4.30); MEAN CORPUS HGB CONC 32.5 g/dL (32.0-36.0); MEAN CORPUSCULAR HEMOGLOB 32.8 pg (26.0-34.0); MEAN PLATELET VOLUME 10.3 fL (9.2-13.0); NEUTROPHILS 72.7 %; NEUTROPHILS ABSOLUTE 10.94 10/3/uL (2.02-8.40); PLATELET COUNT 355 10/3/uL (150-400); RBC DISTRIBUTION WIDTH 13.6 % (12.0-16.0); RED CELL COUNT 3.84 10/6/uL (4.0-5.6); WHITE BLOOD CELLS 15.1 10/3/uL (4.5-10.5)
[2017-01-07 04:18] LABS: MANUAL DIFF NO %
[2017-01-07 04:26] LABS: BUN (BLOOD UREA NITROGEN) 19 MG/DL (6-23); CALCIUM, SERUM 8.8 MG/DL (8.5-10.4); CHLORIDE, SERUM 104 MMOL/L (96-112); CO2 (CARBON DIOXIDE) 31 MMOL/L (24-34); CREATININE 1.03 MG/DL (0.55-1.02); GFR AFRICAN AMERICAN 65 ML/MIN (>=60); GFR NON AFRICAN AMERICAN 56 ML/MIN (>=60); GLUCOSE, SERUM 152 MG/DL (60-99); PHOSPHORUS, SERUM 3.7 MG/DL (2.5-4.5); POTASSIUM, SERUM 3.1 MMOL/L (3.5-5.3); SODIUM, SERUM 142 MMOL/L (135-148)
[2017-01-07 04:38] LABS: BE (BASE EXCESS) 5.1 MEQ/L (0 +/- 2.5); CARBOXYHEMOGLOBIN 0.1 % (0-3); HCO3 (ACTUAL BICARBONATE) 30.5 MEQ/L (23-27); HEMOBLOGIN CONTENT 13.8 G/DL (12-16); INSTRUMENT SERIAL # 35151; METHEMOGLOBIN 0.5 % (0-3); MODE PCV; OPERATOR ID 33214; PCO2 (CO2 TENSION) 48 MMHG (35-45); PO2 (O2 TENSION) 106 MMHG (79-93); SAMPLE Arterial; pH 7.43 (7.37-7.43)
[2017-01-07 10:13] LABS: PHOSPHORUS, SERUM 4.1 MG/DL (2.5-4.5); POTASSIUM, SERUM 3.5 MMOL/L (3.5-5.3)
[2017-01-07 13:13] LABS: PHOSPHORUS, SERUM 3.5 MG/DL (2.5-4.5); POTASSIUM, SERUM 3.1 MMOL/L (3.5-5.3)
[2017-01-07 13:17] LABS: A/G RATIO 0.7 (0.7-1.9); ALBUMIN 2.8 G/DL (3.5-5.0); ALKALINE PHOSPHATASE 124 U/L (45-117); BUN (BLOOD UREA NITROGEN) 18 MG/DL (6-23); CALCIUM, SERUM 8.6 MG/DL (8.5-10.4); CHLORIDE, SERUM 104 MMOL/L (96-112); CO2 (CARBON DIOXIDE) 29 MMOL/L (24-34); CREATININE 1.04 MG/DL (0.55-1.02); GFR AFRICAN AMERICAN 64 ML/MIN (>=60); GFR NON AFRICAN AMERICAN 56 ML/MIN (>=60); GLOBULIN 3.8 G/DL (2.5-4.1); GLUCOSE, SERUM 127 MG/DL (60-99); PREALBUMIN 14.4 MG/DL (17.0-43.0); SGOT(AST) 75 U/L (5-40); SGPT(ALT) 38 U/L (5-65); SODIUM, SERUM 143 MMOL/L (135-148); TOTAL BILIRUBIN 0.3 MG/DL (0-1.2); TOTAL PROTEIN 6.6 G/DL (6.0-8.5)
[2017-01-07 13:57] LABS: DEPAKENE (VALPROIC ACID) 85.1 MCG/ML (50.0-100.0); DILANTIN (PHENYTOIN) 7.5 MCG/ML (10.0-20.0)
[2017-01-08 03:47] LABS: BASOPHILS 0.1 %; BASOPHILS ABSOLUTE 0.01 10/3/uL (0.0-0.16); EOSINOPHILS 0.1 %; EOSINOPHILS ABSOLUTE 0.01 10/3/uL (0.0-0.53); HEMATOCRIT 39.2 % (36.0-48.0); HEMOGLOBIN 12.6 g/dL (12.0-16.0); IMMATURE GRANULOCYTES 0.4 %; IMMATURE GRANULOCYTES ABSOLUTE 0.05 10/3/uL (0.0-0.11); LYMPHOCYTES 14.1 %; LYMPHOCYTES ABSOLUTE 1.73 10/3/uL (0.67-4.30); MEAN CORPUS HGB CONC 32.1 g/dL (32.0-36.0); MEAN CORPUSCULAR HEMOGLOB 32.8 pg (26.0-34.0); MEAN CORPUSCULAR VOLUME 102.1 fL (80-100); MEAN PLATELET VOLUME 10.3 fL (9.2-13.0); MONOCYTES 9.8 %; NEUTROPHILS 75.5 %; NEUTROPHILS ABSOLUTE 9.25 10/3/uL (2.02-8.40); PLATELET COUNT 320 10/3/uL (150-400); RBC DISTRIBUTION WIDTH 13.9 % (12.0-16.0); RED CELL COUNT 3.84 10/6/uL (4.0-5.6); WHITE BLOOD CELLS 12.3 10/3/uL (4.5-10.5)
[2017-01-08 03:48] LABS: MANUAL DIFF NO %
[2017-01-08 04:00] LABS: BUN (BLOOD UREA NITROGEN) 17 MG/DL (6-23); CALCIUM, SERUM 8.6 MG/DL (8.5-10.4); CHLORIDE, SERUM 105 MMOL/L (96-112); CO2 (CARBON DIOXIDE) 32 MMOL/L (24-34); CREATININE 0.96 MG/DL (0.55-1.02); GFR AFRICAN AMERICAN 71 ML/MIN (>=60); GFR NON AFRICAN AMERICAN 61 ML/MIN (>=60); GLUCOSE, SERUM 114 MG/DL (60-99); POTASSIUM, SERUM 3.4 MMOL/L (3.5-5.3); SODIUM, SERUM 144 MMOL/L (135-148)
[2017-01-08 05:00] LABS: ALLENS TEST Pos; BE (BASE EXCESS) 3.8 MEQ/L (0 +/- 2.5); CARBOXYHEMOGLOBIN 0.2 % (0-3); HCO3 (ACTUAL BICARBONATE) 29.9 MEQ/L (23-27); HEMOBLOGIN CONTENT 13.8 G/DL (12-16); INSTRUMENT SERIAL # 35151; METHEMOGLOBIN 0.7 % (0-3); MODE PCV; O2 CONTENT 19.1 VOL% (18-24); OPERATOR ID 33214; PCO2 (CO2 TENSION) 51 MMHG (35-45); PO2 (O2 TENSION) 121 MMHG (79-93); SAMPLE Arterial; pH 7.38 (7.37-7.43)
[2017-01-09 05:10] LABS: BASOPHILS 0.1 %; BASOPHILS ABSOLUTE 0.01 10/3/uL (0.0-0.16); EOSINOPHILS 0 %; HEMATOCRIT 39.5 % (36.0-48.0); HEMOGLOBIN 12.4 g/dL (12.0-16.0); IMMATURE GRANULOCYTES 0.4 %; IMMATURE GRANULOCYTES ABSOLUTE 0.06 10/3/uL (0.0-0.11); LYMPHOCYTES 7.2 %; LYMPHOCYTES ABSOLUTE 1.17 10/3/uL (0.67-4.30); MEAN CORPUS HGB CONC 31.4 g/dL (32.0-36.0); MEAN CORPUSCULAR HEMOGLOB 32.8 pg (26.0-34.0); MEAN CORPUSCULAR VOLUME 104.5 fL (80-100); MEAN PLATELET VOLUME 10.6 fL (9.2-13.0); MONOCYTES ABSOLUTE 0.97 10/3/uL (0.21-1.20); NEUTROPHILS 86.3 %; NEUTROPHILS ABSOLUTE 14.02 10/3/uL (2.02-8.40); PLATELET COUNT 289 10/3/uL (150-400); RED CELL COUNT 3.78 10/6/uL (4.0-5.6); WHITE BLOOD CELLS 16.2 10/3/uL (4.5-10.5)
[2017-01-09 05:15] LABS: MANUAL DIFF NO %
[2017-01-09 05:18] LABS: CALCIUM, SERUM 9.1 MG/DL (8.5-10.4); CHLORIDE, SERUM 104 MMOL/L (96-112); CO2 (CARBON DIOXIDE) 31 MMOL/L (24-34); CREATININE 1.02 MG/DL (0.55-1.02); GFR AFRICAN AMERICAN 66 ML/MIN (>=60); GFR NON AFRICAN AMERICAN 57 ML/MIN (>=60); POTASSIUM, SERUM 3.6 MMOL/L (3.5-5.3); SODIUM, SERUM 143 MMOL/L (135-148)
[2017-01-09 05:19] LABS: BUN (BLOOD UREA NITROGEN) 22 MG/DL (6-23); GLUCOSE, SERUM 152 MG/DL (60-99); PHOSPHORUS, SERUM 2.2 MG/DL (2.5-4.5)
== END 2017-01-09 18:54 | disposition expired | DRG 246 ==
LOC: SSU2 17:24 → CCU 19:30
PROVIDERS: Internal Medicine Cardiovascular Disease; Internal Medicine Critical Care Medicine; Internal Medicine Pulmonary Disease
PROC: 027034Z Dilation of Coronary Artery, One Artery with Drug-eluting Intraluminal Device, Percutaneous Approach (ICD-10-PCS; principal; 2017-01-05)
PROC: 5A1955Z Respiratory Ventilation, Greater than 96 Consecutive Hours (ICD-10-PCS; 2017-01-05)
PROC: 4A023N7 Measurement of Cardiac Sampling and Pressure, Left Heart, Percutaneous Approach (ICD-10-PCS; 2017-01-05)
PROC: 0BH17EZ Insertion of Endotracheal Airway into Trachea, Via Natural or Artificial Opening (ICD-10-PCS; 2017-01-05)
PROC: B2151ZZ Fluoroscopy of Left Heart using Low Osmolar Contrast (ICD-10-PCS; 2017-01-05)
PROC: B2111ZZ Fluoroscopy of Multiple Coronary Arteries using Low Osmolar Contrast (ICD-10-PCS; 2017-01-05)
PROC: 02HV33Z Insertion of Infusion Device into Superior Vena Cava, Percutaneous Approach (ICD-10-PCS; 2017-01-06)
PROC: 4A02X4A Measurement of Cardiac Electrical Activity, Guidance, External Approach (ICD-10-PCS; 2017-01-06)
DX: I21.3 ST elevation (STEMI) myocardial infarction of unspecified site (principal); J96.01 Acute respiratory failure with hypoxia; I46.9 Cardiac arrest, cause unspecified; R57.0 Cardiogenic shock; D66 Hereditary factor VIII deficiency; B36.9 Superficial mycosis, unspecified; G40.901 Epilepsy, unspecified, not intractable, with status epilepticus; G93.1 Anoxic brain damage, not elsewhere classified; E87.4 Mixed disorder of acid-base balance; Z68.41 Body mass index [BMI] 40.0-44.9, adult; I25.10 Atherosclerotic heart disease of native coronary artery without angina pectoris; J44.9 Chronic obstructive pulmonary disease, unspecified; Z51.5 Encounter for palliative care; G25.3 Myoclonus; F32.9 Major depressive disorder, single episode, unspecified; I44.7 Left bundle-branch block, unspecified; E66.01 Morbid (severe) obesity due to excess calories; E78.5 Hyperlipidemia, unspecified; M19.90 Unspecified osteoarthritis, unspecified site; E03.9 Hypothyroidism, unspecified; I25.5 Ischemic cardiomyopathy; Z95.1 Presence of aortocoronary bypass graft; Z95.5 Presence of coronary angioplasty implant and graft; Z87.891 Personal history of nicotine dependence; Z98.890 Other specified postprocedural states; Z68.35 Body mass index [BMI] 35.0-35.9, adult
CPT/HCPCS: 31720; 36569; 36600; 70450; 71010; 72040; 80048; 80053; 80061; 80164; 80185; 81001; 82140; 82330; 82550; 82553; 82565; 82803; 82805; 82947; 82962; 83605; 83735; 84100; 84132; 84134; 84295; 84484; 85014; 85025; 85610; 85730; 87040; 87641; 93005; 93458; 94002; 94003; 94640; 94770; 95813; 95816; 99152; A9270-GY; C1725; C1751; C1769; C1874; C1887; C1894; C8929; C9113; C9606; J0360; J0583; J1940; J1953; J2250; J3010; Q2009; Q9957; Q9967